=== PATIENT | female | born 1955 | race Two or more races ===

== ENCOUNTER 2018-03-15 18:26 | Inpatient (IN) | payer MEDICAID ==
[~2018-03-15] VITALS: Ht 167.6 cm; Wt 99.8 kg
--- NOTE | ~2018-03-15 | HEMODYNAMI ---
PATIENT:VLADISLAV FERNANDEZ MEDICAL RECORD: [id number] : 51 LOCATION:[facility] D.2120 ADMISSION DATE: 03/15/18 Generatedon:03/16/201811:56 Patient name: VLADISLAV FERNANDEZ Patient #: [id number] SSN: : 1955 Date of study: 03/16/2018 Page: Of Hemodynamic Procedure Report Patient Data Patient Demographics Procedure consent was obtained First Name: VLADISLAV Gender: Female Last Name: REBECCA : 1955 Patient #: [id number] Age: 62 year(s) Race: Other Additional ID: [id number] Contact details Address: [address] [place] [address] State: [place] City: [facility] [place] Zip code: [address] Past Medical History Allergies: No known allergies Admission Admission Data Admission Date: 03/15/2018 Admission Time: 20:29 Room #: D2120 Lab Results Lab Result Date: 03/16/2018 Lab Result Time: 0:00 Biochemistry Name Units Result Min Max BUN mg/dl 13 --(--*-)-- 7 18 Creatinine mg/dl 1 --(--*-)-- 0.6 1.3 CBC Name Units Result Min Max Hemoglobin g/dl 12.3 *-(----)-- 13.5 17.5 Procedure Procedure Types Cath Procedure Diagnostic Procedure LHC LHC w/Coronaries Procedure Description Procedure Date Procedure Date: 03/16/2018 Procedure Start Time: 11:41 Procedure End Time: 11:56 Procedure Staff Name Function Gregg Manrique MD Performing Physician Pily Zacarias RT Monitor Alma Delia Pichardo RT Scrub Kevin Dill RN Nurse Procedure Data Cath Procedure Fluoroscopy Diagnostic fluoroscopy Total fluoroscopy Time: 3.5 time: 3.5 min min Diagnostic fluoroscopy Total fluoroscopy dose: 506 dose: 506 mGy mGy Contrast Material Contrast Material Type Amount (ml) Isovue 300 64 Entry Location Entry Primary Successful Side Size Upsize Upsize Entry Closure Martinez ccessful Closure Location (Fr) 1 (Fr) 2 (Fr) Remarks Device Remarks Radial Right 6 Fr Mechanical artery Short Compression Estimated blood loss: 5 ml Diagnostic catheters Device Type Used For End Catheter Placement DIAGNOSTIC Gilman 110cm 5 Procedure Fr catheter ([id number]) DIAGNOSTIC Maximus 110cm Procedure 5Fr catheter ([id number]) Procedure Complications No complications Procedure Medications Medication Administration Route Dosage Oxygen etCO2 Nasal cannula 2 l/min Lidocaine 2% added to field 20 Heparin Flush Bag added to field 2 bags (1000units/500ml NS) 0.9% NaCl I.V. 100 ml/hr Radial Cocktail I.A. 1 syringe (Verapomil 2mg/Nitro 400mcg/Heparin 1500units) Versed I.V. 1 mg Fentanyl I.V. 50 mcg Versed I.V. 1 mg Fentanyl I.V. 50 mcg Hemodynamics Rest HGB: 12.3 (g/dl) Heart Rate: 49 (bpm) Pressure Samples Time Site Value (mmHg) Purpose Heart Use Rate(bpm) 11:45 LV 148/-7,8 Snapshot 66 Gradients Valve Time Site Site Mean SEP/DFP Peak To Heart Use 1 2 (mmHg) (sec/min) Peak Rate (mmHg) (bpm) Aortic 11:46 LV AO 62 Snapshots Pre Cath Intra NCS Post Cath Vital Signs Time Heart Resp SPO2 etCO2 NIBP (mmHg) Rhythm Pain Sedation Rate (ipm) (%) (mmHg) Status Level (bpm) 11:30:02 47 23 99 0 162/73(138) NSR 0 (11) 10(A) , No pain 11:34:42 48 35 97 32.4 149/76(117) NSR 0 (11) 10(A) , No pain 11:39:21 53 16 96 16.5 139/76(114) NSR 0 (11) 10(A) , No pain 11:43:55 59 15 94 14.3 138/82(113) NSR 0 (11) 9(A) , No pain 11:48:34 62 13 95 30.8 136/62(103) NSR 0 (11) 9(A) , No pain 11:53:08 68 14 94 33.9 139/72(107) NSR 0 (11) 10(A) , No pain Medications Time Medication Route Dose Verified Delivered Reason Notes Effectiveness by by 11:33:11 Oxygen etCO2 2 l/min Gregg Buffie used for Nasal Burton Dill RN procedure cannula 11:33:22 Lidocaine 2% added 20ml Gregg Gregg for local to vial Burton Manrique MD anesthetic field 11:33:28 Heparin Flush added 2 bags Gregg Gregg used for Bag to Burton Manrique MD procedure (1000units/500ml field NS) 11:33:37 0.9% NaCl I.V. 100 Gregg Buffie Per ml/hr Burton Dill RN physician 11:38:21 Versed I.V. 1 mg Gregg Buffie for sedation Burton Dill RN 11:38:27 Fentanyl I.V. 50 mcg Gregg Buffie for sedation Burton Dill RN 11:44:32 Versed I.V. 1 mg Gregg Buffie for sedation Burton Dill RN 11:44:36 Fentanyl I.V. 50 mcg Gregg Buffie for sedation Burton Dill RN 11:44:49 Radial Cocktail I.A. 1 Gregg Gregg for (Verapomil syringe Burton Manrique MD vasodilation 2mg/Nitro 400mcg/Heparin 1500units) Procedure Log Time Note 11:07:05 Time tracking: Regular hours (M-F 7:00 - 5:00) 11:07:09 Plan of Care:Hemodynamics will remain stable., Cardiac rhythm will remain stable., Comfort level will be maintained., Respiratory function will remain adequate., Patient/ family verbilizes understanding of procedure., Procedure tolerated without complication., Recovers from procedure without complications.. 11:07:12 Signed procedure consent form obtained from patient. 11:07:45 H&P Date Dictated: 03/16/2018 Within 30 days and on chart.. 11:08:01 Kevin Dill RN sent for patient. Start room use. 11:08:19 Lab Result : BUN 13 mg/dl 11:08:19 Lab Result : Hemoglobin 12.3 g/dl 11:08:19 Lab Result : Creatinine 1 mg/dl 11:08:28 Patient allergic to No known allergies 11:21:03 Patient received from ED to CCL 1 Alert and oriented. Tansferred to table in Supine position. 11:21:04 Warm blankets applied, and dave hugger turned on for patient comfort. 11:21:05 Correct patient and procedure confirmed by team. 11::08 ECG and BP/O2 sat monitors applied to patient. 11::07 Vital chart was started 11::08 Full Disclosure recording started 11:33:11 Oxygen 2 l/min etCO2 Nasal cannula was administered by Kevin Dill RN; used for procedure; 11:33:22 Lidocaine 2% 20ml vial added to field was administered by Gregg Manrique MD; for local anesthetic; 11:33:28 Heparin Flush Bag (1000units/500ml NS) 2 bags added to field was administered by Gregg Manrique MD; used for procedure; 11:33:37 0.9% NaCl 100 ml/hr I.V. was administered by Kevin Dill RN; Per physician; 11:34:49 Baseline sample Acquired. 11:34:54 Rhythm: sinus bradycardia 11:35:03 Pre-procedure instructions explained to patient. 11:35:03 Pre-op teaching completed and patient verbalized understanding. 11:35:06 Family in waiting room. 11:35:08 Patient NPO since Midnight. 11:35:36 Is the patient allergic to Iodine/contrast media? No. 11:35:40 Is patient on blood thinner?No 11:35:41 Patient diabetic? Yes. 11:35:59 PATIENT HAS NOT HAD METFORMIN IN ONE MONTH OR TWO 11:36:02 Patient not . Patient is over age 55. 11:36:05 Previous problem with sedation/anesthesia? No ? 11:36:19 Snore? No 11:36:19 Sleep apnea? No 11:36:21 Deviated septum? No 11:36:22 Opens mouth fully? Yes 11:36:22 Sticks out tongue? Yes 11:36:24 Airway obstruction? No ? 11:36:29 Dentures? Yes IN TIGHT 11:36:31 Modified Kenrick's test Ulnar < 7 seconds 11:36:33 Patient pain scale 0/10 ?. 11:36:40 IV patent on arrival in left forearm with 0.9% NaCl at [facility]. 11:36:43 Lab results completed and on chart. 11:36:47 Right Radial & Right Groin area was prepped with chlora-prep and draped in sterile fashion 11:36:49 Alarms reviewed by R. N. 11:36:49 Sharps counted by scrub and verified by R.N. 11:37:29 --------ALL STOP TIME OUT------ 11:37:30 Final Timeout: patient, procedure, and site verified with staff and physician. All members of the team are in agreement. 11:37:31 Right Radial & Right Groin site verified by team. 11:37:34 Physical assessment completed. ASA score P 2 - A patient with mild systemic disease as per Gregg Manrique MD. 11:37:37 Sedation plan: IV Moderate Sedation Medication:Versed, Fentanyl 11:38:09 Use device set Radial Dx or PCI 11:38:10 ACIST Syringe (99458) opened to sterile field. 11:38:11 Bag Decanter (2002S) opened to sterile field. 11:38:12 ACIST Hand Control (33667) opened to sterile field. 11:38:13 ACIST Manifold (48107) opened to sterile field. 11:38:13 Tegaderm 4 x 4 (1626W) opened to sterile field. 11:38:18 Medline Cath Pack ([id number]) opened to sterile field. 11:38:19 DIAGNOSTIC WIRE .035 260cm J wire (376998) opened to sterile field. 11:38:21 Versed 1 mg I.V. was administered by Kevin Dill RN; for sedation; 11:38:21 SHEATH 6Fr Prelude Radial ([id number]) opened to sterile field. 11:38:27 Fentanyl 50 mcg I.V. was administered by Kevin Dill RN; for sedation; 11:40:12 Zero performed for pressure channel P1 11:41:23 Zero performed for pressure channel P1 11:41:42 Procedure started. 11:41:50 Local anesthetic to right radial artery with Lidocaine 2% by Gregg Manrique MD.INITIAL ACCESS ONLY 11:42:04 Zero performed for pressure channel P1 11:43:57 A 6 Fr Short sheath was inserted into the Right Radial artery 11:44:11 A DIAGNOSTIC Gilman 110cm 5 Fr catheter ([id number]) was advanced over the wire and used for Procedure. 11:44:32 Versed 1 mg I.V. was administered by Kevin Dill RN; for sedation; 11:44:36 Fentanyl 50 mcg I.V. was administered by Kevin Dill RN; for sedation; 11:44:49 Radial Cocktail (Verapomil 2mg/Nitro 400mcg/Heparin 1500units) 1 syringe I.A. was administered by Gregg Manrique MD; for vasodilation; 11:45:26 LV gram done using MATHIAS 11:45:29 Injector settings: Ml/sec: 7, Volume: 15, 11:46:02 LV hemodynamics recorded. 11:46:18 EF : 55 % 11:47:46 RCA angiography performed. 11:48:32 UNABLE TO ENGAGE LT. CORONARY 11:48:34 Catheter exchanged over wire. 11:48:54 A DIAGNOSTIC Maximus 110cm 5Fr catheter (075186) was advanced over the wire and used for Procedure. 11:51:30 LCA angiography performed. 11:52:11 Catheter removed. 11:52:18 TR BAND Standard ([id number]) opened to sterile field. 11:52:24 Procedure ended.(Physican Out) 11:52:38 Fluoroscopy time 03.50 minutes. 11:52:42 Fluoroscopy dose: 506 mGy 11:52:42 Flurop Dose total: 506 11:52:49 Contrast amount:Isovue 300 64ml. 11:52:51 Sharps counted by scrub and verified by R.N. 11:52:57 Sheath removed intact; hemostasis achieved with Mechanical Compression to the Right Radial artery. 11:53:13 TR band inflated with 10cc of air. 11:53:18 Post-procedure physical assessment completed. ASA score P 2 - A patient with mild systemic disease as per Gregg Manrique MD. 11:53:22 Post procedure rhythm: sinus rhythm 11:53:25 Estimated blood loss: 5 ml 11:53:27 Post procedure instruction explained to patient.Patient verbalizes understanding. 11:53:27 Patient needs reinforcement of post procedure teaching. 11:55:02 Procedure and supply charges have been captured, reviewed, submitted and are correct. 11:56:10 Procedure Complication : No complications 11:56:12 Vital chart was stopped 11:56:13 See physician's report for complete and final results. 11:56:16 Report given to [facility]. 11:56:18 Patient transfered to [facility] with Bed. 11:56:19 Procedure ended. 11:56:19 Full Disclosure recording stopped 11:56:26 End room use (Document Last) Device Usage Item Name Manufacture Quantity Catalog Number Hospital Part Current M inimal Lot# / Charge Number Stock Stock Serial# Code ACIST Syringe Acist 1 79957 409259 284449 927499 2 0 (31500) [employer] Bag Decanter Microtek 1 2001S 101401 47025 463857 5 (2001S) Medical Inc. ACIST Hand Acist 1 14348 132568 809755 877968 5 Control (11960) [employer] Inc ACIST Manifold Acist 1 21944 167469 644663 444571 5 (61250) [employer] Inc Tegaderm 4 x 4 3M 1 1626W 817919 042643 114322 5 (1626W) Medline Cath Cardinal 1 [id number] 494347 53719 623821 5 [facility] ([id number]) DIAGNOSTIC WIRE [facility] 1 523301 502579 525923 742832 3 0 .035 260cm J wire (747398) SHEATH 6Fr Merit 1 [id number] 359095 281279 100101 5 Prelude Radial Medical ([id number]) DIAGNOSTIC Terumo 1 40-5013 374388 937132 604235 5 Gilman 110cm 5 Fr catheter (932777) DIAGNOSTIC Terumo 1 40-5023 032761 018108 863714 5 Maximus 110cm 5Fr catheter (909014) TR BAND Terumo 1 [id number] 758304 595104 882092 4 0 Standard ([id number]) Signature Audit [place] Stage Time Signature Unsigned Intra-Procedure 03/16/2018 Pily Zacarias 11:56:52 AM RT(R) Signatures Monitor : Pily Zacarias Signature : RT Date : Time : [id number] [place] [address]
[2018-03-15] MEDS ORDERED: PRINIVIL20 MG PO (18:40)
[2018-03-15] MEDS ORDERED: ZOCOR20 MG PO (18:40)
[2018-03-15] MEDS ORDERED: HUMALOG 30100 UNITS/ SC (18:41)
[2018-03-15 19:03] LABS: BASOPHILS 0.1 % (0-2); EOSINOPHILS 2.2 % (0-7); HEMATOCRIT 37.7 % (36.0-48.0); HEMOGLOBIN 12.7 g/dL (12-16); IMMATURE GRANULOCYTES 0.1 % (0-5); LYMPHOCYTES 39.5 % (15-50); MCH 29.8 pg (26.0-34.0); MCHC 33.7 g/dL (31.0-37.0); MCV 88.5 fL (80.0-100.0); MEAN PLATELET VOLUME 12.9 fL (7.4-10.4); MONOCYTES 6.2 % (2-11); NEUTROPHILS 51.9 % (40-80); PLATELET COUNT 155 10x3/uL (130-400); RBC 4.26 10x6/uL (4.00-5.40); RDW 14.7 % (11.5-14.5); WBC 6.9 10x3/uL (4.8-10.8)
[2018-03-15 19:18] LABS: ALBUMIN 3.2 g/dL (3.4-5.0); ALKALINE PHOSPHATASE 111 U/L (46-116); ALT (SGPT) 17 U/L (10-68); CALC OSMOLALITY 286 mosm/kg (275-300); CALCIUM 8.6 mg/dL (8.5-10.1); CARBON DIOXIDE 25.9 mmol/L (21.0-32.0); CHLORIDE - SERUM 107 mmol/L (98-107); GLUCOSE 196 mg/dL (74-106); PROTEIN - SERUM 6.6 g/dL (6.4-8.2); SODIUM 141 mmol/L (136-145); UREA NITROGEN 15 mg/dL (7-18); eGFR NON AFRICAN AMERICAN 59 mL/min (90-120)
[2018-03-15 19:28] LABS: CKMB 0.7 U/L (0.0-3.6); CREATINE KINASE 66 UL (21-215)
[2018-03-15 19:29] LABS: TROPONIN-I < 0.017 ng/mL (0.000-0.060)
[2018-03-15 20:01] LABS: THYROID STIMULATING HORMONE 2.82 uIU/mL (0.36-3.74)
[2018-03-15 20:33] VITALS: BP 165/65
[2018-03-15 23:59] VITALS: BP 143/67
[2018-03-16] VITALS (7 sets, daily range): BP systolic 120–139; BP diastolic 42–63; BMI 35.6
[2018-03-16 09:44] LABS: ANION GAP 10.8 mmol/L (8-16); CALCIUM 8.7 mg/dL (8.5-10.1); CARBON DIOXIDE 27.5 mmol/L (21.0-32.0); POTASSIUM - SERUM 4.3 mmol/L (3.5-5.1)
[2018-03-16 09:54] LABS: BASOPHILS 0.3 % (0-2); EOSINOPHILS 2.3 % (0-7); HEMATOCRIT 37.4 % (36.0-48.0); HEMOGLOBIN 12.3 g/dL (12-16); LYMPHOCYTES 39.8 % (15-50); MCH 29.4 pg (26.0-34.0); MCHC 32.9 g/dL (31.0-37.0); MCV 89.5 fL (80.0-100.0); MEAN PLATELET VOLUME 13.4 fL (7.4-10.4); NEUTROPHILS 50.6 % (40-80); PLATELET COUNT 152 10x3/uL (130-400); RBC 4.18 10x6/uL (4.00-5.40); RDW 14.9 % (11.5-14.5); WBC 6.5 10x3/uL (4.8-10.8)
[2018-03-17 04:59] VITALS: BP 105/37
[2018-03-17 05:00] VITALS: BP 98/31
[2018-03-17 06:09] LABS: BASOPHILS 0.2 % (0-2); EOSINOPHILS 1.8 % (0-7); HEMATOCRIT 38.7 % (36.0-48.0); HEMOGLOBIN 12.7 g/dL (12-16); IMMATURE GRANULOCYTES 0.2 % (0-5); LYMPHOCYTES 36.8 % (15-50); MCH 29.3 pg (26.0-34.0); MCHC 32.8 g/dL (31.0-37.0); MCV 89.2 fL (80.0-100.0); MEAN PLATELET VOLUME 13.3 fL (7.4-10.4); MONOCYTES 7.5 % (2-11); NEUTROPHILS 53.5 % (40-80); PLATELET COUNT 151 10x3/uL (130-400); RBC 4.34 10x6/uL (4.00-5.40); RDW 14.8 % (11.5-14.5)
[2018-03-17 06:21] LABS: ANION GAP 12.3 mmol/L (8-16); CALCIUM 8.7 mg/dL (8.5-10.1); CARBON DIOXIDE 26.1 mmol/L (21.0-32.0); CREATININE - SERUM 1.2 mg/dL (0.6-1.3); POTASSIUM - SERUM 4.4 mmol/L (3.5-5.1)
[2018-03-17 07:39] VITALS: BP 101/43
[2018-03-17 12:22] VITALS: Ht 167.6 cm; Wt 99.8 kg
[2018-03-17] MEDS ORDERED: PROTONIX40 MG PO (12:31)
[2018-03-17] MEDS ORDERED: CARAFATE1 G PO (12:31)
[2018-03-17] MEDS ORDERED: NOVOLIN N100 U/ML SC ×2 (14:28→14:29)
== END 2018-03-17 15:49 | disposition home or self-care (01) | DRG 287 ==
LOC: D.ER 18:26 → D.EDHOLD 20:29 → OBSVTIME 20:29 → D.EDHOLD 20:29 → D.M2 20:29
PROVIDERS: Family Medicine; Internal Medicine Cardiovascular Disease; Internal Medicine Nephrology
PROC: B2111ZZ Fluoroscopy of Multiple Coronary Arteries using Low Osmolar Contrast (ICD-10-PCS; 2018-03-16)
PROC: B2151ZZ Fluoroscopy of Left Heart using Low Osmolar Contrast (ICD-10-PCS; 2018-03-16)
PROC: 4A023N7 Measurement of Cardiac Sampling and Pressure, Left Heart, Percutaneous Approach (ICD-10-PCS; principal; 2018-03-16 12:00)
DX: R07.9 Chest pain, unspecified (principal); R00.1 Bradycardia, unspecified; I10 Essential (primary) hypertension; E11.9 Type 2 diabetes mellitus without complications

== ENCOUNTER 2018-11-30 18:40 | Inpatient (IN) | payer MEDICARE ==
[~2018-11-30] VITALS: Ht 167.6 cm; Wt 90.4 kg
[~2018-11-30 18:40] MED LIST: CARAFATE1 G PO; HUMALOG 30100 UNITS/ SC; NOVOLIN N100 U/ML SC; PRINIVIL20 MG PO; PROTONIX40 MG PO; ZOCOR20 MG PO
[2018-11-30 19:43] LABS: BASOPHILS 0 % (0-2); EOSINOPHILS 2.3 % (0-7); HEMATOCRIT 36.2 % (36.0-48.0); HEMOGLOBIN 12.4 g/dL (12-16); IMMATURE GRANULOCYTES 0.2 % (0-5); LYMPHOCYTES 4.7 % (15-50); MCH 29.9 pg (26.0-34.0); MCHC 34.3 g/dL (31.0-37.0); MCV 87.2 fL (80.0-100.0); MEAN PLATELET VOLUME 13.8 fL (7.4-10.4); MONOCYTES 4.5 % (2-11); NEUTROPHILS 88.3 % (40-80); PLATELET COUNT 142 10x3/uL (130-400); RBC 4.15 10x6/uL (4.00-5.40); RDW 13.4 % (11.5-14.5); WBC 6.4 10x3/uL (4.8-10.8)
[2018-11-30 19:47] LABS: ALBUMIN 4.1 g/dL (3.4-5.0); ALKALINE PHOSPHATASE 98 U/L (46-116); ALT (SGPT) 20 U/L (10-68); CALCIUM 9.2 mg/dL (8.5-10.1); CARBON DIOXIDE 22.5 mmol/L (21.0-32.0); CHLORIDE - SERUM 97 mmol/L (98-107); POTASSIUM - SERUM 4.6 mmol/L (3.5-5.1); PROTEIN - SERUM 7.7 g/dL (6.4-8.2); SODIUM 133 mmol/L (136-145); UREA NITROGEN 19 mg/dL (7-18); eGFR NON AFRICAN AMERICAN 26 mL/min (90-120)
[2018-11-30 19:52] LABS: CALC OSMOLALITY 276 mosm/kg (275-300); GLUCOSE 257 mg/dL (74-106); TROPONIN-I < 0.017 ng/mL (0.000-0.060)
[2018-11-30 20:03] LABS: AMYLASE - SERUM 38 U/L (25-115); KETONE - SERUM NEGATIVE (NEGATIVE); LIPASE 110 U/L (73-393); MAGNESIUM - SERUM 1.3 mg/dL (1.8-2.4)
[2018-11-30 21:00] VITALS: BP 141/53
[2018-11-30 22:30] VITALS: BP 140/50
[2018-11-30 23:15] LABS: APPEARANCE TURBID (CLEAR); BILIRUBIN NEGATIVE (NEGATIVE); COLOR YELLOW (YELLOW); GLUCOSE 100 mg/dL (NEGATIVE); KETONE NEGATIVE (NEGATIVE); NITRITE NEGATIVE (NEGATIVE); PROTEIN NEGATIVE (NEGATIVE); UROBILINOGEN NORMAL (NORMAL)
[2018-11-30 23:18] LABS: BACTERIA FEW /hpf (NONE SEEN); EPITHELIAL CELLS 0-5 /hpf (0-5); MUCUS <1+ /lpf (NONE SEEN); RED CELLS - URINE RARE /hpf (0-5); WHITE CELLS - URINE RARE /hpf (0-5)
[2018-11-30 23:19] LABS: HYALINE CAST RARE /lpf (NONE SEEN); URIC ACID CRYSTALS >50 /hpf (NONE SEEN)
[2018-12-01 04:06] VITALS: BP 144/52; BMI 31.3
[2018-12-01 05:41] LABS: BASOPHILS 0 % (0-2); EOSINOPHILS 0.9 % (0-7); HEMATOCRIT 31.5 % (36.0-48.0); HEMOGLOBIN 10.9 g/dL (12-16); IMMATURE GRANULOCYTES 0.4 % (0-5); LYMPHOCYTES 5.7 % (15-50); MCH 29.9 pg (26.0-34.0); MCHC 34.6 g/dL (31.0-37.0); MCV 86.3 fL (80.0-100.0); MEAN PLATELET VOLUME 13.4 fL (7.4-10.4); MONOCYTES 4.9 % (2-11); NEUTROPHILS 88.1 % (40-80); RBC 3.65 10x6/uL (4.00-5.40); RDW 13.4 % (11.5-14.5); WBC 5.3 10x3/uL (4.8-10.8)
[2018-12-01 05:55] VITALS: BP 144/52
[2018-12-01 06:43] LABS: PLATELET COUNT 113 10x3/uL (130-400)
[2018-12-01 06:50] LABS: ALBUMIN 3.3 g/dL (3.4-5.0); ANION GAP 17.8 mmol/L (8-16); BILIRUBIN - TOTAL 0.34 mg/dL (0.2-1.3); CALCIUM 8.4 mg/dL (8.5-10.1); CARBON DIOXIDE 19.5 mmol/L (21.0-32.0); CREATININE - SERUM 1.6 mg/dL (0.6-1.3); POTASSIUM - SERUM 4.3 mmol/L (3.5-5.1); PROTEIN - SERUM 6.5 g/dL (6.4-8.2)
[2018-12-01 07:42] VITALS: BP 110/37
[2018-12-01 11:25] VITALS: BP 110/39
[2018-12-01 13:02] VITALS: BMI 30.6
[2018-12-01 15:26] VITALS: BP 125/52
[2018-12-01 18:41] LABS: % SATURATION 5 % (15-55); IRON 11 ug/dl (35-150); TOTAL IRON BIND CAPACITY 207 ug/dl (260-445); UNSAT IRON BIND CAPACITY 196 ug/dl (150-375)
[2018-12-01 21:27] VITALS: BP 105/38
[2018-12-02 00:38] VITALS: BP 109/44
[2018-12-02 05:36] LABS: BASOPHILS 0.3 % (0-2); EOSINOPHILS 1.8 % (0-7); HEMATOCRIT 29.6 % (36.0-48.0); HEMOGLOBIN 9.8 g/dL (12-16); IMMATURE GRANULOCYTES 0.3 % (0-5); MCH 28.7 pg (26.0-34.0); MCHC 33.1 g/dL (31.0-37.0); MCV 86.5 fL (80.0-100.0); MONOCYTES 18.3 % (2-11); NEUTROPHILS 58.3 % (40-80); PLATELET COUNT 102 10x3/uL (130-400); RBC 3.42 10x6/uL (4.00-5.40); RDW 13.7 % (11.5-14.5)
[2018-12-02 05:41] LABS: WBC 3.3 10x3/uL (4.8-10.8)
[2018-12-02 06:15] VITALS: BP 129/38
[2018-12-02 06:24] LABS: ALBUMIN 2.9 g/dL (3.4-5.0); ANION GAP 13.6 mmol/L (8-16); BILIRUBIN - TOTAL 0.29 mg/dL (0.2-1.3); CALCIUM 8.1 mg/dL (8.5-10.1); CARBON DIOXIDE 21.5 mmol/L (21.0-32.0); CREATININE - SERUM 1.2 mg/dL (0.6-1.3); MAGNESIUM - SERUM 1.3 mg/dL (1.8-2.4); POTASSIUM - SERUM 4.1 mmol/L (3.5-5.1); PROTEIN - SERUM 5.8 g/dL (6.4-8.2)
[2018-12-02 08:03] VITALS: BP 125/45
[2018-12-02] MEDS ORDERED: BASAGLAR K100 UNIT/1 SC (10:17)
[2018-12-02] MEDS ORDERED: ZANAFLEX2 M1 PO (10:18)
[2018-12-02] MEDS ORDERED: CLARITIN 10 MG10 MG PO (10:19)
[2018-12-02] MEDS ORDERED: NORVASC5 MG PO (10:19)
[2018-12-02] MEDS ORDERED: LINZESS290 MCG PO (10:19)
[2018-12-02] MEDS ORDERED: GLUCOPHAGE1000 MG PO (10:20)
[2018-12-02] MEDS ORDERED: MOBIC7.5 MG PO (10:20)
[2018-12-02 11:50] VITALS: BP 137/50
[2018-12-02 15:05] VITALS: BP 144/52
[2018-12-02 15:32] VITALS: Ht 167.6 cm; Wt 90.4 kg
[2018-12-02 21:21] VITALS: BP 133/52
[2018-12-03] VITALS: BP 146/47
[2018-12-03 04:00] VITALS: BP 120/34
[2018-12-03 05:40] LABS: ALBUMIN 2.7 g/dL (3.4-5.0); ANION GAP 15.6 mmol/L (8-16); BILIRUBIN - TOTAL 0.32 mg/dL (0.2-1.3); CALCIUM 8.3 mg/dL (8.5-10.1); CARBON DIOXIDE 20.3 mmol/L (21.0-32.0); CREATININE - SERUM 1.1 mg/dL (0.6-1.3); MAGNESIUM - SERUM 1.4 mg/dL (1.8-2.4); POTASSIUM - SERUM 3.9 mmol/L (3.5-5.1); PROTEIN - SERUM 5.8 g/dL (6.4-8.2)
[2018-12-03 05:54] LABS: BASOPHILS 0.5 % (0-2); EOSINOPHILS 4.1 % (0-7); HEMOGLOBIN 10.1 g/dL (12-16); IMMATURE GRANULOCYTES 0.2 % (0-5); LYMPHOCYTES 39.3 % (15-50); MCH 29.1 pg (26.0-34.0); MCHC 33.7 g/dL (31.0-37.0); MCV 86.5 fL (80.0-100.0); MEAN PLATELET VOLUME 13.3 fL (7.4-10.4); MONOCYTES 14.6 % (2-11); NEUTROPHILS 41.3 % (40-80); PLATELET COUNT 102 10x3/uL (130-400); RBC 3.47 10x6/uL (4.00-5.40); RDW 13.8 % (11.5-14.5); WBC 4.1 10x3/uL (4.8-10.8)
[2018-12-03 08:23] VITALS: BP 131/38
[2018-12-03 11:11] LABS: FOLATE (FOLIC ACID) - SERUM 6.9 ng/mL (>3.0)
[2018-12-03 12:00] VITALS: BP 129/43
[2018-12-03 15:30] VITALS: BP 136/42
[2018-12-03 15:36] VITALS: BP 136/42
[2018-12-03] MEDS ORDERED: LEVOFLOXACIN500 MG PO (16:40)
--- NOTE | 2018-12-03 17:16 | MORECARE ---
CASE MANAGEMENT DISCHARGE SUMMARY PATIENT: VLADISLAV GRIJALVA UNIT: [id number] ADM DATE: 11/30/18 AGE: 63 : 53 SEX: F ROOM/BED: D.[facility] AUTHOR: DAVIDDOC PHYSICIAN: REFERRING PHYSICIAN: PRIMO MARQUES MD DATE OF SERVICE: 12/03/18 Discharge Plan Patient Name: VLADISLAV GRIJALVA Facility: [facility]:[place] : 1955 Planned Disposition: Home Anticipated Discharge Date: 12/03/18 Discharge Date: Expected LOS: 3 Initial Reviewer: [email or web address] Initial Review Date: 12/01/2018 Generated: 12/03/18 6:16 pm DCPIA - Discharge Planning Initial Assessment Updated by [email or web address]: Amish Lopez on 12/03/18 5:16 pm * Is the patient Alert and Oriented? Yes * How many steps to enter\exit or inside your home? * PCP [facility] ON [address] * Pharmacy [facility]. * Preadmission Environment Home with Family * ADLs Independent * Equipment Cane * Other Equipment NO MEDICAL EQUIPMENT PROVIDER PREFERENCE * List name and contact numbers for known caregivers / representatives who currently or will assist patient after discharge: LOLY INFANTE, DTR, MARIA R GRIJALVA DTR IN [facility], * Verbal permission to speak to the caregivers and representatives has been obtained from the patient. Yes * Community resources currently utilized None * Please name any agencies selected above. NONE * Additional services required to return to the preadmission environment? No * Can the patient safely return to the preadmission environment? Yes * Has this patient been hospitalized within the prior 30 days at any hospital? No Coverage Notice Reviewer: [id number] - Amish Lopez Notice Issued Date-Time: 12/03/2018 15:55 Notice Type: IM Discharge Notice Notice Delivered To: Patient Relationship to Patient: Certified Surgical Technologist Name: Delivery Method: HAND - Hand Delivered Paulina Days: Prior Verbal Notification: Recipient Understood Notice: Yes Recipient Signature: Yes Med Rec Note Co-signed by Attending: Coverage Notice Comment: MICRONESIAN VERSION, PT REPORTS ABILITY TO READ MICRONESIAN Patient Name: VLADISLAV GRIJALVA Page 41411 at 1716 All edits/amendments must be made on the electronic document DICTATION DATE: 12/03/181714 UNION LABORER: RAY 12/03/181714 RPT#: [id number] DC DATE: STATUS: ADM IN [facility] [address] [place] [address] END OF REPORT
--- NOTE | 2018-12-03 17:25 | MORECARE ---
CASE MANAGEMENT DISCHARGE SUMMARY PATIENT: VLADISLAV GRIJALVA UNIT: [id number] ADM DATE: 11/30/18 AGE: 63 : 53 SEX: F ROOM/BED: D.8596 AUTHOR: DAVIDDOC PHYSICIAN: REFERRING PHYSICIAN: PRIMO MARQUES MD DATE OF SERVICE: 12/03/18 Discharge Plan Patient Name: VLADISLAV GRIJALVA Facility: [facility]:[place] : 1955 Planned Disposition: Home Anticipated Discharge Date: 12/03/18 Discharge Date: Expected LOS: 3 Initial Reviewer: [email or web address] Initial Review Date: 12/01/2018 Generated: 12/03/18 6:25 pm Comments DCP- Discharge Planning Updated by [email or web address]: Amish Lopez on 12/03/18 4:[address] Patient Name: VLADISLAV GRIJALVA Admission Status: ER Accout number: [id number] Admission Date: 11-30-2018 : 1955 Admission Diagnosis:UNSPECIFIED ABDOMINAL PAIN Attending: PRIMO ALARCON Current LOS: 3 Anticipated DC Date: 12-03-2018 Planned Disposition: Home Primary Insurance: MEDICARE A & B Discharge Planning Comments: CM MET WITH PT AND DAUGHTER IN ROOM TO DISCUSS DISCHARGE PLANNING AND NEEDS. VLADISLAV GRIJALVA provided verbal consent to discuss current and ongoing needs with/in the presence of: LOLY HOLLY. CM OFFERED USE OF LANGUAGE LINE FOR INTERPRETATION, PT REFUSED THE SERVICE AND INDICATED HER DAUGHTER WILL INTERPRET FOR HER PT'S [place] LANGUAGE IS MALAYSIAN. PT REPORTS ABILITY TO READ AND WRITE MALAYSIAN. PT REPORTS LIVING AT HOME INDEPENDENTLY WITH HER ADULT CHILDREN. PT HAS A CANE WITH NO MEDICAL EQUIPMENT PROVIDER PREFERENCE AND NO OUTSIDE SERVICES ASSISTING IN THE HOME. CM DISCUSSED AVAILABILITY OF HOME HEALTH, REHAB SERVICES AND MEDICAL EQUIPMENT. PT DENIES DISCHARGE NEEDS, REPORTS HER SON WILL PICK HER UP FOR DISCHARGE HOME. IMPORTANT MESSAGE FROM MEDICARE PROVIDED AND EXPLAINED. Chief Deputy Clerk/Bailiff: Amish Lopez DCPIA - Discharge Planning Initial Assessment Updated by [email or web address]: Amish Lopez on 12/03/18 5:16 pm * Is the patient Alert and Oriented? Yes * How many steps to enter\exit or inside your home? * PCP [facility] LE[facility] ON [address] * Pharmacy [facility]. * Preadmission Environment Home with Family * ADLs Independent * Equipment Cane * Other Equipment NO MEDICAL EQUIPMENT PROVIDER PREFERENCE * List name and contact numbers for known caregivers / representatives who currently or will assist patient after discharge: LOLY INFANTE, DTR, MARIA R GRIJALVA, DTR IN [facility], * Verbal permission to speak to the caregivers and representatives has been obtained from the patient. Yes * Community resources currently utilized None * Please name any agencies selected above. NONE * Additional services required to return to the preadmission environment? No * Can the patient safely return to the preadmission environment? Yes * Has this patient been hospitalized within the prior 30 days at any hospital? No Coverage Notice Reviewer: [email or web address] Alfreda Lopez Notice Issued Date-Time: 12/03/2018 15:55 Notice Type: IM Discharge Notice Notice Delivered To: Patient Relationship to Patient: Investigator Utility Bill Complaints Name: Delivery Method: HAND - Hand Delivered Paulina Days: Prior Verbal Notification: Recipient Understood Notice: Yes Recipient Signature: Yes Med Rec Note Co-signed by Attending: Coverage Notice Comment: MALAYSIAN VERSION, PT REPORTS ABILITY TO READ MALAYSIAN Last DP export: 12/03/18 4:16 pm Patient Name: VLADISLAV GRIJALVA Page [id number] at 1725 All edits/amendments must be made on the electronic document DICTATION DATE: 12/03/181723 ADVERTISING SUPERVISOR: RAY 12/03/181723 RPT#: [id number] DC DATE: STATUS: ADM IN [facility] [address] [place] [address] END OF REPORT
--- NOTE | 2018-12-04 08:48 | MORECARE ---
CASE MANAGEMENT DISCHARGE SUMMARY PATIENT: VLADISLAV GRIJALVA UNIT: [id number] ADM DATE: 11/30/18 AGE: 63 : 51 SEX: F ROOM/BED: D.7098 AUTHOR: RIP HERNANDEZ PHYSICIAN: REFERRING PHYSICIAN: PRIMO MARQUES MD DATE OF SERVICE: 12/04/18 Discharge Plan Patient Name: VLADISLAV GRIJALVA Facility: [facility]:[place] : 1955 Planned Disposition: Home Anticipated Discharge Date: 12/03/18 Discharge Date: 12/03/2018 Expected LOS: 3 Initial Reviewer: [email or web address] Initial Review Date: 12/01/2018 Generated: 12/04/18 9:48 am Comments DCP- Discharge Planning Updated by [email or web address]: Amish Lopez on 12/03/18 4:[address] Patient Name: VLADISLAV GRIJALVA Admission Status: ER Accout number: [id number] Admission Date: 11-30-2018 : 1955 Admission Diagnosis:UNSPECIFIED ABDOMINAL PAIN Attending: PRIMO ALARCON Current LOS: 3 Anticipated DC Date: 12-03-2018 Planned Disposition: Home Primary Insurance: MEDICARE A & B Discharge Planning Comments: CM MET WITH PT AND DAUGHTER IN ROOM TO DISCUSS DISCHARGE PLANNING AND NEEDS. VLADISLAV GRIJALVA provided verbal consent to discuss current and ongoing needs with/in the presence of: LOLY HOLLY. CM OFFERED USE OF LANGUAGE LINE FOR INTERPRETATION, PT REFUSED THE SERVICE AND INDICATED HER DAUGHTER WILL INTERPRET FOR HER PT'S [place] LANGU[place] IS [place]. PT REPORTS ABILITY TO READ AND WRITE [place] ISLANDER. PT REPORTS LIVING AT HOME INDEPENDENTLY WITH HER ADULT CHILDREN. PT HAS A CANE WITH NO MEDICAL EQUIPMENT PROVIDER PREFERENCE AND NO OUTSIDE SERVICES ASSISTING IN THE HOME. CM DISCUSSED AVAILABILITY OF HOME HEALTH, REHAB SERVICES AND MEDICAL EQUIPMENT. PT DENIES DISCHARGE NEEDS, REPORTS HER SON WILL PICK HER UP FOR DISCHARGE HOME. IMPORTANT MESSAGE FROM MEDICARE PROVIDED AND EXPLAINED. Belt Operator: Amish Lopez DCPIA - Discharge Planning Initial Assessment Updated by [email or web address]: Amish Lopez on 12/03/18 5:16 pm * Is the patient Alert and Oriented? Yes * How many steps to enter\exit or inside your home? * PCP [facility] ON [address] * Pharmacy [facility]. * Preadmission Environment Home with Family * ADLs Independent * Equipment Cane * Other Equipment NO MEDICAL EQUIPMENT PROVIDER PREFERENCE * List name and contact numbers for known caregivers / representatives who currently or will assist patient after discharge: LOLY INFANTE, DTR, MARIA R GRIJALVA, DTR IN [facility], * Verbal permission to speak to the caregivers and representatives has been obtained from the patient. Yes * Community resources currently utilized None * Please name any agencies selected above. NONE * Additional services required to return to the preadmission environment? No * Can the patient safely return to the preadmission environment? Yes * Has this patient been hospitalized within the prior 30 days at any hospital? No Coverage Notice Reviewer: [email or web address] Alfreda Lopez Notice Issued Date-Time: 12/03/2018 15:55 Notice Type: IM Discharge Notice Notice Delivered To: Patient Relationship to Patient: Sub Plant Manager Name: Delivery Method: HAND - Hand Delivered Paulina Days: Prior Verbal Notification: Recipient Understood Notice: Yes Recipient Signature: Yes Med Rec Note Co-signed by Attending: Coverage Notice Comment: PITCAIRN ISLANDER VERSION, PT REPORTS ABILITY TO READ [place]CA[place] ISLANDER Last DP export: 12/03/18 4:25 pm Patient Name: VLADISLAV GRIJALVA Page [phone] at 0848 All edits/amendments must be made on the electronic document DICTATION DATE: 12/04/1847 FOOD MANAGER: RAY 12/04/18 0847 RPT#: [id number] DC DATE:12/03/18 STATUS: DIS IN [facility] [address] [facility] [place] [address] END OF REPORT
[2018-12-04 11:14] LABS: HEPATITIS C ANTIBODY <0.1 S/CO RAT (0.0-0.9)
[2018-12-11 18:07] LABS: AEROBE ID Final report (())
== END 2018-12-03 18:09 | disposition home or self-care (01) | DRG 683 ==
LOC: D.ER 18:40 → D.M2 23:09 → D.EDHOLD 23:09 → D.M2 23:42
PROVIDERS: Family Medicine; Internal Medicine Hematology & Oncology; ADMIT Family Medicine Adult Medicine; ATTEND Family Medicine Adult Medicine
DX: N17.9 Acute kidney failure, unspecified (principal); N39.0 Urinary tract infection, site not specified; D61.818 Other pancytopenia; R10.32 Left lower quadrant pain; E11.65 Type 2 diabetes mellitus with hyperglycemia; D50.9 Iron deficiency anemia, unspecified; K59.00 Constipation, unspecified; K57.90 Diverticulosis of intestine, part unspecified, without perforation or abscess without bleeding; E66.01 Morbid (severe) obesity due to excess calories; Z68.31 Body mass index [BMI] 31.0-31.9, adult; Z86.010 Personal history of colon polyps